=== PATIENT | female | born 1980 | race Caucasian/White ===

== ENCOUNTER 2017-01-17 14:28 | Inpatient (IN) | payer SELFPAY ==
[2017-01-17] MEDS ORDERED: HYDROcodone/Acetaminophen 5/325 mg Tablet ONE ×2 (15:30→16:15)
[2017-01-17] MEDS ORDERED: Clindamycin/D5W 900 mg/50 ml Premix Bag ONE (15:31)
[2017-01-17 15:53] LABS: #Basophils 0.2 thou/uL (0.0-0.2); #Eosinphils 0.3 thou/uL (0.0-0.7); #Lymphocytes 4.6 thou/uL (1.20-3.40); #Monocytes 0.6 thou/uL (0.11-0.59); #Neutrophils 5.8 thou/uL (1.40-6.50); %Basophils 1.3 % (0.0-1.0); %Eosinophils 2.8 % (0.0-10.0); %Lymphocytes 40.1 % (21.0-51.0); %Monocytes 4.9 % (0.0-10.0); Hematocrit 40.5 % (36.0-47.0); Mean Platelet Volume 7.3 fL (7.4-10.4); Red Blood Cell (RBC) Count 4.55 mill/uL (4.20-5.40); White Blood Cell (WBC) Count 11.5 thou/uL (4.8-10.8)
--- NOTE | 2017-01-17 15:54 | RAD ---
THREE VIEWS RIGHT HAND: HISTORY: Right hand bit by dog. FINDINGS: AP, lateral, and oblique views of the right hand are obtained. Three views of the right hand demons trate an area of lucency involving the distal tuft of the distal phalanx, fifth digit, right hand. No other significant abnormality seen. IMPRESSION: Findings concerning for a minimally displaced fracture , distal tuft, distal phalanx, fifth digit, r ight hand. POS: MEÑO
[2017-01-17] MEDS ORDERED: Metoclopramide HCl 10 MG/2 ML VIAL ONE (16:18)
[2017-01-17] MEDS ORDERED: Bisacodyl 10 MG SUPP PR PRN (18:02)
[2017-01-17] MEDS ORDERED: Bisacodyl 5 MG TAB PO PRN (18:02)
[2017-01-17] MEDS ORDERED: HYDROcodone/Acetaminophen 5/325 mg Tablet PO PRN (18:02)
[2017-01-17] MEDS ORDERED: Ondansetron HCl/PF 4 MG/2 ML Vial IVP PRN (18:02)
[2017-01-17] MEDS ORDERED: Calcium Carbonate 500 MG ChewTAB PO PRN (18:02)
[2017-01-17 18:54] LABS: ALT (SGPT) 20 U/L (8-55); AST (SGOT) 21 U/L (5-34); Alkaline Phosphatase 84 U/L (40-150); Anion Gap 15 mmol/L (10-20); BUN (Urea Nitrogen) 12 mg/dL (7.0-18.7); Bilirubin, Total 0.3 mg/dL (0.2-1.2); Calc. Creatinine Clearance 0 mL/min (70-130); Calcium 9.7 mg/dL (7.8-10.44); Carbon Dioxide 22 mmol/L (22-29); Chloride 108 mmol/L (98-107); Estimated GFR-MDRD Greater than 90; Globulin 2.6 g/dL (2.4-3.5); Protein, Total 7.1 g/dL (6.0-8.3)
[2017-01-17] MEDS ORDERED: Sodium Chloride 0.9% 10 ML ONE ×2 (19:33→21:21)
[2017-01-17] MEDS: Ondansetron ODT 4 MG TAB PO PRN (19:37)
[2017-01-17] MEDS: Fentanyl 100 MCG/2 ML VIAL SLOW IVP PRN (19:44)
[2017-01-17] MEDS: Famotidine/PF 20 mg/2ml Vial SLOW IVP SCH (21:00)
[2017-01-17 21:19] VITALS: BMI 39.9
[2017-01-17] MEDS: Famotidine 20 MG TAB PO SCH (21:32)
[2017-01-17] MEDS: HYDROcodone/Acetaminophen 5/325 mg Tablet PO PRN (22:55)
[2017-01-17] MEDS: metroNIDAZOLE 500 MG in Premix Bag 1 BAG IVPB SCH (23:04)
[2017-01-18] MEDS ORDERED: Sodium Chloride 0.9% 10 ML ONE (00:43)
[2017-01-18] MEDS: Fentanyl 100 MCG/2 ML VIAL SLOW IVP PRN ×3 (00:49→12:34)
[2017-01-18] MEDS: HYDROcodone/Acetaminophen 5/325 mg Tablet PO PRN ×2 (04:27→19:16)
[2017-01-18 05:32] LABS: #Basophils 0.1 thou/uL (0.0-0.2); #Eosinphils 0.5 thou/uL (0.0-0.7); #Lymphocytes 5.6 thou/uL (1.20-3.40); #Monocytes 0.7 thou/uL (0.11-0.59); #Neutrophils 4.4 thou/uL (1.40-6.50); %Basophils 1.1 % (0.0-1.0); %Eosinophils 4.6 % (0.0-10.0); %Lymphocytes 49.3 % (21.0-51.0); %Monocytes 6.3 % (0.0-10.0); Hematocrit 40.2 % (36.0-47.0); Mean Platelet Volume 7.3 fL (7.4-10.4); Red Blood Cell (RBC) Count 4.51 mill/uL (4.20-5.40); White Blood Cell (WBC) Count 11.3 thou/uL (4.8-10.8)
[2017-01-18] MEDS ORDERED: Potassium Chloride 20 MEQ TAB PO SCH (06:00)
--- NOTE | 2017-01-18 06:25 | HP-2 ---
DATE OF ADMISSION: 01/17/2017 CODE STATUS: FULL. ATTENDING: Aniyah Chavez M.D. RESIDENT: Carloz Alcazar, PGY-1 CHIEF COMPLAINT: Dog bite. HISTORY OF PRESENT ILLNESS: This is a 36-year-old female, who came in, presenting with ri ght hand swelling due to a dog bite. Dog bite occurred on Saturday after she was playing with her do g, dog kind of a little excited and accidentally bit her. She then went to clean her fish tanks on the same day. Over the next few days, she said she kept washing her hands, kept taking some pain me dicine, yet the pain continued to get worse and swelling got worse. She thought she had a possible break, so she came to us at the ER where she reports throbbing pain, pain at a 7 and 8. She has jorge en Advil and Tylenol and says the swelling gotten worse. She reports some nausea in the ER, but she had recently got some medicine and thinks it is from that. PAST MEDICAL HISTORY: Bipolar, ADHD and anxiety. PAST SURGICAL HISTORY: Hysterectomy, cholecystectomy, right knee scope and x2. ALLERGIES: AMOXICILLIN and SULFA, which cause swelling of the throat. MEDICATIONS: She was on none. FAMILY HISTORY: Mom had breast cancer and high blood pressure. Dad had diabetes. SOCIAL HISTORY: She smokes 1 to 2 cigarettes a day. She also vapes. She quit smoking heavily abou t 4 years ago. Alcohol use is none. Drugs are none. REVIEW OF SYSTEMS: She reported nausea, pain in the hand, tenderness and stiffness in the hand. Al l other review of systems are noted in the HPI and in the review of system section are otherwise neg ative at this time. PHYSICAL EXAMINATION: VITAL SIGNS: Blood pressure 142/98, pulse 67, respirations 18, temperature 97.5, pulse ox 97% on ro om air, current weight is 89 kg. GENERAL: Alert and oriented x3, well-developed, well-nourished, obese, and appropriately interactiv e. EYES: Conjunctivae within normal limits. ENT: Nasal mucosa within normal limits. Oropharynx within normal limits. NECK: Supple, no lymphadenopathy, no thyromegaly. CARDIOVASCULAR: Regular rate and rhythm. No murmur, no gallops. Radial pulses palpated bilaterall y. RESPIRATORY: Normal breathing effort. Lungs are clear to auscultation bilaterally, a little hard t o hear due to body habitus. SKIN: Warm and dry. There is redness and bruising of the right hand. ABDOMEN: Soft, nontender to palpation. Bowel sounds heard in all 4 quadrants. No masses or disten tion noted. EXTREMITIES: She has swelling in her right hand. It is red, bruised and tender up to the wrist are a. The puncture wound is in between the thumb and the right index finger in the padding area of the hand. She also has extreme pain with passive flexion of her right index finger. There is also swe lling in her right middle finger and redness goes up to her fourth and fifth digit as well. Not as much pain with movement on the middle fourth and fifth digits. It was time marked at 1700 and marke d where the redness and swelling went o. MUSCULOSKELETAL: Structure is not within normal limits due to dog bite. She does not have full ran ge of motion in her hand due to the swelling. NEUROLOGIC: No focal deficits and sensation is within normal limits. LABORATORY DATA: White blood cell count is 11.5, hemoglobin 13.7, hematocrit 40.5, platelets 353, a nd neutrophil percent was 50.8. IMAGING: A hand x-ray showed findings concerning of minimally displaced fracture distal tuft, dista l phalanx and fifth digit of the right hand. ASSESSMENT AND PLAN: 1. Cellulitis secondary to dog bite/fish tank clean, was started on Cipro 400 IV q.12 hours and met ronidazole 500 mg IV q.8 hours. We give her a regular diet. We will give her [place] for pain. Give fentanyl for pain as well. We will do famotidine for GERD prophylaxis. Check an ESR and CRP if el evated. We will get an MRI concerning for tenosynovitis. Her tetanus is up to date and her dog has rabies vaccines up to date as well at this time. We will consider hand consult depending on what t he MRI shows. 2. Bipolar, attention deficit hyperactivity disorder, anxiety, psychological disorder. She is not taking treatment at this time. We will not treat at this time. 3. Suspected hypertension. Blood pressure is a little elevated may be due to pain. We will contin ue to monitor and recommend treatment outpatient.
[2017-01-18] MEDS: metroNIDAZOLE 500 MG in Premix Bag 1 BAG IVPB SCH ×3 (06:28→22:23)
[2017-01-18] MEDS: NS 0.9% w/ 20 MEQ KCL 1,000 ML/1,000 ML BAG IV SCH ×3 (06:37→19:17)
--- NOTE | 2017-01-18 08:12 | PDOC.FM ---
- Subjective Subjective: pt reports doing much better today. Swelling and redness in hand improved. Still has lots of pain in R. index finger. Finger still in flexed position. Reports having lots of pain to light touch. Denies any fever chills. Denies any n/v/d/c. No other concerns or problems at this time - Objective Vital Signs & Weight: Vital Signs (12 hours) Temp Pulse Resp BP BP Pulse Ox 01/18/17 08:06 97.9 F 61 20 113/74 01/18/17 04:20 97.7 F 66 16 123/78 98 01/18/17 00:45 97.8 F 68 16 163/87 H 98 Weight Weight 89.811 kg I&O: 01/17/17 01/18/17 01/19/17 06:59 06:59 06:59 Intake Total 1602 Balance 1602 Result Diagrams: 01/18/17 05:07 01/17/17 15:47 Radiology Reviewed by me: Yes Radiology: 01/17 Hand xray: findings concerning for a minimally displace fx, distal tuft, distal phalanx, fifth digit, right hand. <Carloz Alcazar - Last Filed: 01/18/17 08:10> - Objective Vital Signs & Weight: Vital Signs (12 hours) Temp Pulse Resp BP BP Pulse Ox 01/18/17 08:06 97.9 F 61 20 113/74 01/18/17 08:02 97.9 F 61 20 01/18/17 04:20 97.7 F 66 16 123/78 98 01/18/17 00:45 97.8 F 68 16 163/87 H 98 Weight Weight 89.811 kg I&O: 01/17/17 01/18/17 01/19/17 06:59 06:59 06:59 Intake Total 1602 Balance 1602 Result Diagrams: 01/18/17 05:07 01/17/17 15:47 <Jin Westfall - Last Filed: 01/18/17 11:16> Phys Exam - Physical Examination HEENT: moist MMs, oral pharynx no lesions Neck: no nodes, supple, full ROM Respiratory: no wheezing, no rales, no rhonchi, clear to auscultation bilateral Cardiovascular: RRR, no significant murmur, no rub Gastrointestinal: soft, non-tender, no distention, positive bowel sounds Musculoskeletal: pulses present R. hand still swollen. Redness decreased from marking point. less bruising r. index Finger still flexed. Lots of pain on attempt of passive flexion Neurological: non-focal, normal sensation Lymphatic: no nodes Psychiatric: normal affect, A&O x 3 Deviation from normal: No oozing or drainage from puncture wound. Redness, Swelling decreased <Carloz Alcazar - Last Filed: 01/18/17 08:10> Dx/Plan (1) Dog bite Code(s): W54.0XXA - BITTEN BY DOG, INITIAL ENCOUNTER Status: Acute (2) Cellulitis of right hand Code(s): L03.113 - CELLULITIS OF RIGHT UPPER LIMB Status: Acute (3) Tenosynovitis of finger Status: Suspected (4) Tobacco abuse Code(s): Z72.0 - TOBACCO USE Status: Acute (5) Bipolar 1 disorder Code(s): F31.9 - BIPOLAR DISORDER, UNSPECIFIED Status: Chronic (6) ADHD Status: Chronic (7) Anxiety Code(s): F41.9 - ANXIETY DISORDER, UNSPECIFIED Status: Chronic - Plan Plan: Cellulitis 2/2 Dog bite and cleaning out fish tank -On cipro and Flagyl due to allergies to amoxicillin/sulfa abx -ESR normal. CRP elevated to 3.07. -WBC down at 11.3 -Will continue to monitor Suspected Tenosynovitis -MRI pending this morning. -Pain on passive extesion of R. index finger. Held in flexed position -Likely consult Hand surgery today Bipolar, ADHD, Anxiety -currently not on any meds. -Continue to monitor Suspected HTN -Not on any meds -Continue to monitor and recommend f/u outpatient Tobacco Abuse -counselled on quitting <Carloz Alcazar - Last Filed: 01/18/17 08:10> Attending Addendum - Attending Addendum I personally evaluated the patient and discussed the management with Dr. Alcazar. I agree with the History, Examination, Assessment and Plan documented above with any addition or exceptions noted below. R hand improving with IV antibiotics. Will continue. MRI showed tenosynovitis , so we will consult hand surgeon for evaluation. Patient complaining of itching with IV cipro, will pre-medicate with Benadryl, as no other reactions. <Jin Westfall - Last Filed: 01/18/17 11:16>
[2017-01-18] MEDS: Famotidine 20 MG TAB PO SCH ×2 (09:03→21:05)
[2017-01-18] MEDS: Famotidine/PF 20 mg/2ml Vial SLOW IVP SCH ×2 (09:03→21:12)
[2017-01-18] MEDS ORDERED: diphenhydrAMINE HCl 50 MG/ML 1 ML VIAL IVP SCH ×3 (09:45→22:15)
--- NOTE | 2017-01-18 10:48 | MRI ---
MRI RIGHT WRIST WITHOUT CONTRAST: Date: 01/18/17 HISTORY: Evaluate for tenosynovitis of the right second digit. COMPARISON: Hand radiograph from prior day. FINDINGS: Bones: Field of view is much too large to evaluate for small fractures of the distal phalanges, although th ere is now abnormal edema of the tuft of the distal phalanx fifth digit. The radiographic finding ma y be an old injury. Tendons: There is low grade edema surrounding the extensor indices and digitorum at the metacarpophalangeal j oint. Remainder of the tendon sheaths are normal. Muscles: There appears to be a laceration with small focus of hemorrhage along the dorsal aspect of the first dorsal interosseous muscle. There is extensive surrounding edema. There is overlying skin thickenin g. Edema tracks from the thenar eminence into the palmar soft tissues deep to the first lumbrical an d adductor pollicis. Soft Tissues: No evidence of a alfie injury. There is a large effusion of the second digit metatarsophalangeal marty int with an area of subcortical edema of the lateral aspect of the second metatarsal head. No other metacarpal head has an erosion like this. IMPRESSION: 1. Given the history, findings are concerning for a laceration and partial tear of the dorsal aspec t of the first dorsal interosseous muscle with edema, which may be infected, of the metacarpophalang eal joint. There is also an intramedullary fluid collection of the second metacarpal head adjacent t o this injury and an impacted traumatic bone laceration is within the differential given that the hi story is patient was bitten by a dog. 2. Low grade tenosynovitis of the second digit extensor indices and extensor digitorum centered pre dominantly at the metacarpophalangeal joint. CODE T. POS: [facility]
[2017-01-19] MEDS: Fentanyl 100 MCG/2 ML VIAL SLOW IVP PRN ×3 (04:48→19:23)
[2017-01-19] MEDS ORDERED: Sodium Chloride 0.9% 10 ML ONE (06:01)
[2017-01-19 06:20] LABS: Anion Gap 11 mmol/L (10-20); BUN (Urea Nitrogen) 12 mg/dL (7.0-18.7); Calc. Creatinine Clearance 150 mL/min (70-130); Calcium 9.3 mg/dL (7.8-10.44); Carbon Dioxide 24 mmol/L (22-29); Chloride 111 mmol/L (98-107); Estimated GFR-MDRD Greater than 90
[2017-01-19 06:34] LABS: Hematocrit 38.3 % (36.0-47.0); Mean Platelet Volume 7.7 fL (7.4-10.4); Neutrophil 37 % (42-75); Red Blood Cell (RBC) Count 4.25 mill/uL (4.20-5.40); White Blood Cell (WBC) Count 10.3 thou/uL (4.8-10.8)
--- NOTE | 2017-01-19 06:58 | PDOC.FM ---
- Subjective Subjective: Pt still reports having bad pain in puncture bite kathy. Still has finger in flexed position. Denies any fever, chills. denies any SOB or chest pain. Denies any n/v/d. Denies any other problems at this time. - Objective MAR Reviewed: Yes Vital Signs & Weight: Vital Signs (12 hours) Temp Pulse Resp BP Pulse Ox 01/19/17 00:00 98.3 F 87 18 102/78 01/18/17 19:20 98.3 F 73 20 156/74 H 97 Weight Admit Weight 89.811 kg Weight 89.811 kg I&O: 01/17/17 01/18/17 01/19/17 06:59 06:59 06:59 Intake Total 1602 1382 Balance 1602 1382 Result Diagrams: 01/19/17 05:34 01/19/17 05:34 Radiology Reviewed by me: Yes Radiology: MRI Hand 01/18: Low grade tenosynovitis of second digit, Intramedullary fluid collection of second metacarpal head, and impacted traumatic bone laceration in differential. Xray Rt hand 01/17: minimally displaced fx, distal tuft, distal phalanyx, rt 5th digit Phys Exam - Physical Examination HEENT: PERRLA, moist MMs, oral pharynx no lesions Neck: no nodes, no JVD, supple, full ROM Respiratory: no wheezing, no rales, no rhonchi, clear to auscultation bilateral Cardiovascular: RRR, no significant murmur, no rub Gastrointestinal: soft, non-tender, no distention, positive bowel sounds Musculoskeletal: pulses present Swelling has reduced, Redness minimal Finger still in flexed position, Painful to move. Neurological: non-focal, normal sensation, moves all 4 limbs Lymphatic: no nodes Psychiatric: normal affect, A&O x 3 Skin: no rash Dx/Plan (1) Dog bite Code(s): W54.0XXA - BITTEN BY DOG, INITIAL ENCOUNTER Status: Acute (2) Cellulitis of right hand Code(s): L03.113 - CELLULITIS OF RIGHT UPPER LIMB Status: Acute (3) Tenosynovitis of finger Status: Acute (4) Tobacco abuse Code(s): Z72.0 - TOBACCO USE Status: Acute (5) Bipolar 1 disorder Code(s): F31.9 - BIPOLAR DISORDER, UNSPECIFIED Status: Chronic (6) ADHD Status: Chronic (7) Anxiety Code(s): F41.9 - ANXIETY DISORDER, UNSPECIFIED Status: Chronic - Plan Plan: Cellulitis 2/2 Dog bite and cleaning out fish tank -On cipro and Flagyl due to allergies to amoxicillin/sulfa abx -ESR normal. CRP 3.07 yesterday. -WBC trended down -Will continue to monitor Tenosynovitis -MRI: Low grade tenosynovitis of second digit, possible trauma to the bone. Possible abscess -Pain on passive extesion of R. index finger. Held in flexed position -Hand Surgery consulted- Dr. Fernandez, will follow recommendations -Surgery to be done today. Bipolar, ADHD, Anxiety -currently not on any meds. -Continue to monitor Suspected HTN -Not on any meds -Continue to monitor and recommend f/u outpatient Tobacco Abuse -counselled on quitting
--- NOTE | 2017-01-19 07:09 | CON ---
DATE OF CONSULTATION: 01/19/2017 CHIEF COMPLAINT: Ms. Negrete complains of right dorsal hand wound. HISTORY OF PRESENT ILLNESS: Ms. Negrete reports she was involved bite by her own dog 4 days prior to a dmission, has been in the hospital for over 24 hours on IV antibiotics. No response to this. [facility] doctor ordered an MRI of her hand, which showed an abscess around her tendon, tendon sheath extensor near the joint capsule and may be the bite more penetrating the bone. PAST MEDICAL HISTORY: The patient has no previous dog bites, especially by this dog. PHYSICAL EXAMINATION: She has vital signs shows no fever. No tachycardia. She has soft tissue swe lling with erythema beginning at a puncture wound, which she says secondary to dog bite over the mid metacarpal all the way to the metacarpophalangeal joint, where she has pain with flexion of the isabel nt, but no pain with resisted extension or flexion of the metacarpophalangeal joint or the interphal angeal joints. There is minimal lymphangitic streaking to the level of the distal radius. No thumb abnormality and no flexor tendon sheath such as fusiform swelling or pain with passive stretch and limited or extension of flexion. MRI findings listed above. ASSESSMENT/RECOMMENDATIONS: Abscess, subcutaneous wraps around the tendon sheath from the bit e wound towards the joint may be involved in the capsule, bout doubt abscess within the joint. Ther efore, we recommended a semi-elective but not emergent drainage of this hand, which will be done the next day. The patient counseled all risks to include the fact that there is gross purulence. We w ill need to have possible IV antibiotics, evaluation by Infectious Disease specialist and then a sec ond procedure for closure.
[2017-01-19] MEDS ORDERED: Fentanyl 100 MCG/2 ML VIAL ONE ×3 (07:20→09:24)
[2017-01-19] MEDS ORDERED: Lidocaine 1% (PF) 30 ML VIAL ONE (07:50)
[2017-01-19] MEDS ORDERED: Sodium Chloride 0.9% 30 ML ONE (07:50)
[2017-01-19] MEDS ORDERED: Bupivacaine PF 0.5% 30 ML VIAL ONE (07:50)
[2017-01-19] MEDS ORDERED: Bacitracin Zinc Ointment 30 gm TUBE ONE (07:50)
[2017-01-19] MEDS ORDERED: Thrombin 5000 UNITS/5 ML VIAL ONE (07:50)
[2017-01-19] MEDS ORDERED: Ondansetron HCl/PF 4 MG/2 ML Vial ONE (08:17)
[2017-01-19] MEDS ORDERED: Propofol 200 MG/20 ML VIAL ONE (08:17)
[2017-01-19] MEDS ORDERED: Lidocaine 1% PF 5 ML VIAL ONE (08:17)
[2017-01-19] MEDS ORDERED: Dexamethasone 20 MG/5 ML VIAL ONE (08:17)
[2017-01-19] MEDS ORDERED: diphenhydrAMINE HCl 50 MG/ML 1 ML VIAL ONE (08:17)
[2017-01-19] MEDS ORDERED: HYDROmorphone 2 MG/ML VIAL SLOW IVP PRN (09:30)
[2017-01-19] MEDS ORDERED: Promethazine HCl 25 MG/ML VIAL IM PRN (09:30)
[2017-01-19] MEDS ORDERED: Ondansetron HCl/PF 4 MG/2 ML Vial IVP PRN (09:30)
[2017-01-19] MEDS ORDERED: Promethazine HCl 25 MG/ML VIAL SLOW IVP PRN (09:30)
[2017-01-19] MEDS: Famotidine/PF 20 mg/2ml Vial SLOW IVP SCH ×2 (10:28→19:06)
[2017-01-19] MEDS: metroNIDAZOLE 500 MG in Premix Bag 1 BAG IVPB SCH ×3 (11:27→21:26)
[2017-01-19] MEDS ORDERED: Ketorolac Tromethamine 30 MG/ML VIAL IVP SCH (11:30)
[2017-01-19] MEDS ORDERED: Ketorolac Tromethamine 30 MG/ML VIAL IM SCH (11:30)
[2017-01-19] MEDS ORDERED: Vancomycin HCl 1 GM in Premix Bag 1 BAG IVPB SCH (11:30)
[2017-01-19] MEDS: Famotidine 20 MG TAB PO SCH ×2 (11:36→19:23)
[2017-01-19] MEDS: Morphine Sulfate 2 MG/ML SYRINGE SLOW IVP PRN ×2 (11:43→21:25)
[2017-01-19] MEDS: Promethazine HCl 25 MG/ML VIAL IM PRN (13:11)
[2017-01-19] MEDS: HYDROcodone/Acetaminophen 7.5/325 mg Tablet PO PRN ×2 (16:21→21:25)
[2017-01-19] MEDS: NS 0.9% w/ 20 MEQ KCL 1,000 ML/1,000 ML BAG IV SCH ×2 (16:44→17:53)
[2017-01-19] MEDS: Ketorolac Tromethamine 30 MG/ML VIAL IVP SCH ×2 (17:52→23:37)
--- NOTE | 2017-01-19 20:47 | CON ---
DATE OF CONSULTATION: 01/19/2017 REASON FOR CONSULTATION: Dog bite. HISTORY OF PRESENT ILLNESS: A 36-year-old who has a history of bipolar disorder and was playing wit h her dog and then accidentally it bit her. Initially the area of interest was the dorsal aspect of the right hand, the patient herself did not realize that it had broken the skin. She apparently we nt to clean her fish tank that she owns and subsequently developed progressively worsening inflammat ory changes and was admitted and underwent an MRI which showed a concern for laceration of the bone, laceration of muscle with extensive surrounding edema and overlying skin thickening. There was inf ection of the second digit metatarsophalangeal joint as well. Patient underwent surgical debridemen t by Dr. Fernandez this morning. The operative report is not yet available for review. The patient is feeling well. No headaches, visual symptoms, sore throat, odynophagia, dysphagia. No cough or s putum production or chest pain. No abdominal pain or diarrhea. No genitourinary symptoms. No othe r joint symptoms. No neurological disorder. PAST MEDICAL HISTORY: Bipolar disorder, ADHD. PAST SURGICAL HISTORY: Hysterectomy, cholecystectomy, right knee arthroscopy, . ALLERGIES: AMOXICILLIN and SULFA DRUGS with ANGIOEDEMA and also itching from QUINOLONES. FAMILY HISTORY: Breast cancer in mother. SOCIAL HISTORY: Current smoker. No drug use otherwise. PHYSICAL EXAMINATION: SKIN: The right hand is dressed at this time. Peripheral IV access. No Huerta catheter. No lympha denopathy. HEENT: Not remarkable. LUNGS: Clear to auscultation and percussion. HEART: S1, S2, regular rate. No murmurs. ABDOMEN: Soft. Not distended or tender. No ascites. No bladder distention noted. EXTREMITIES: No other joint inflammatory process. NEUROLOGIC: Nonfocal. LABORATORY DATA: White cell count is down to 10.3, hemoglobin 12, and platelets 340. Differential was not remarkable and sodium 142, creatinine 0.72. Liver profile normal. CK 120. Microbiology 2 sets of blood cultures submitted and we have cultures submitted from the specimen obtained duri surgery this morning still pending interpretation. ASSESSMENT: Bipolar disorder with now accidental dog bite. The dog was vaccinated and was just an inadvertent event. DISCUSSION: Patient has evidence of osteomyelitis, septic arthritis. We will need to continue anti microbial therapy intravenously guided by culture results. Pasteurella Staphylococcus aureus and ot her gram-negative streptococci are the main possibilities; fungal and mycobacterial pathogens less l ikely. Currently, patient is on ciprofloxacin, metronidazole and vancomycin and will continue curre nt regimen until we have results of cultures and then adjust accordingly. Probably will need a PICC line placement.
[2017-01-19] MEDS: Vancomycin HCl 750 MG in Sodium Chloride 0.9% 250 ML 250 ML IVPB SCH (23:36)
--- NOTE | 2017-01-19 23:47 | ADD-PRG ---
ADDENDUM: DATE OF SERVICE: 01/19/2017 The patient was seen with the residents at the bedside. Patient is now postoperative for debridemen t for her right finger abscess from the dog bite and fish aquarium water exposure. Waiting on the c anthonyture results. We got her on Levaquin, eventually was switched to Cipro and Keflex, and GI is bein g consulted, and the hand surgeon is taking care of the postoperative care and orders. Dr. Reyes is taking care of the Infectious Disease side of this and the antibiotics, and we are getting stool st udies to make sure she is not Clostridium difficile positive because she has gotten diarrhea.
--- NOTE | 2017-01-20 00:26 | OP ---
DATE OF PROCEDURE: 01/19/2017 PREOPERATIVE DIAGNOSIS: Abscess from dog bite, right hand. POSTOPERATIVE DIAGNOSES AND FINDINGS: 1. Abscess dog bite with one bite kathy over the mid index finger metacarpal. 2. Dog bite over the metacarpophalangeal joint associated with tenosynovitis of extensor tendons x2 and joint abscess intra-articular with almost 2 to 3 mL of gross purulence within the joint of the index finger metacarpophalangeal joint. PROCEDURES PERFORMED: 1. Incision and drainage abscess hand. 2. At separate site with separate incision from a second separate bite. A. Arthrotomy index finger metacarpophalangeal joint with drainage of abscess. B. Extensor tenosynovectomy extensor digitorum communis to the index finger. C. Extensor tenosynovectomy, extensor indicis proprius tendon to the index finger. Both wounds wer e irrigated with Pulsavac irrigation total of 3 liters of normal saline with antibiotics inside. Mendel th wounds dressed open. CULTURES: A. Culture of a separate wound at the mid metacarpal level. B. The joint cavity abscess. INDICATIONS: Dog bite almost 6 days prior to the surgery. When she did not respond to IV antibioti cs and had a positive MRI for the findings for this as above, Jim for hand service was consulte d. Within 8 hours of evaluation, she was brought to the operating room. DESCRIPTION OF PROCEDURE: After successful general endotracheal anesthesia, limb was prepped and dr martins. Anesthesia done by [facility] with excellent effect. It was augmented by, after soy eout was done appropriately, 12 mL of 0.5% Marcaine block along the two incision sites. The limb wa s exsanguinated, tourniquet inflated to 250 mmHg pressure, then we made a zigzag incision, first daija tered over the MP joint without going over the dorsum and then one centered approximately 3 cm proxi mal to the second dog bite. The second dog bite wound was opened first deep found to have an absces s subcutaneous with small amount of hematoma, all of which were debrided and passed on the specimen. Then, we extended incision to connect to the second incision site over the MP joint here; as soon as we entered the subcutaneous area, we could see marked tenosynovitis with purulence deep to the ex tensor tendon. We did tenosynovectomy of the extensor tendon until we got to the retinaculum on the radial side to expose the joint capsule and the joint had gross purulence as soon as we opened it. Cultures were made of both sites separately. We debrided all the arthrotomy visualized synovitis, d id extensive synovectomy over a 3 cm length for the extensor digitorum communis to the index finger and the extensor indicis proprius to index finger. Then, we irrigated the joint first with 2 liters of normal saline and Pulsavac pressure, 500 mL normal saline bulb syringe pressure, and then the sa me irrigation included the proximal portion of the wound. Then, we attained hemostasis, closed the wound with packing of the joint and the wound with normal saline soaked 4 x 4 sterile bulky dressing and the patient left the operating room without complication.
[2017-01-20] MEDS: metroNIDAZOLE 500 MG in Premix Bag 1 BAG IVPB SCH ×3 (04:23→21:05)
[2017-01-20] MEDS: Ketorolac Tromethamine 30 MG/ML VIAL IVP SCH ×4 (04:25→23:41)
[2017-01-20] MEDS: NS 0.9% w/ 20 MEQ KCL 1,000 ML/1,000 ML BAG IV SCH (04:27)
[2017-01-20] MEDS: Ondansetron ODT 4 MG TAB PO PRN (04:30)
[2017-01-20 05:18] LABS: #Eosinphils 0.1 thou/uL (0.0-0.7); #Lymphocytes 2.5 thou/uL (1.20-3.40); #Monocytes 1.1 thou/uL (0.11-0.59); %Basophils 0.2 % (0.0-1.0); %Eosinophils 0.3 % (0.0-10.0); %Lymphocytes 15.2 % (21.0-51.0); %Monocytes 6.3 % (0.0-10.0); Hematocrit 38.1 % (36.0-47.0); Mean Platelet Volume 7.8 fL (7.4-10.4); Red Blood Cell (RBC) Count 4.29 mill/uL (4.20-5.40); White Blood Cell (WBC) Count 16.7 thou/uL (4.8-10.8)
--- NOTE | 2017-01-20 07:20 | PDOC.FM ---
- Subjective Subjective: Pt post-op day 1. Had surgery on hand yesterday. Hand wrapped at this time. Pt was sleeping when in the room. Pt reports having chills overnight. Pt denies any n/v/d/c. Denies any chest pain or SOB. Pt does report having pain sometimes. Says pain is being treated okay. Says the norco just takes awhile to kick in. Says the fentanyl helped but for some reason the morphine hasn't worked. Able to tolerate pain. Denied any other problems or concerns at this time. - Objective MAR Reviewed: Yes Vital Signs & Weight: Vital Signs (12 hours) Temp Pulse Resp BP Pulse Ox 01/20/17 04:00 98.0 F 73 16 132/81 97 01/20/17 00:00 99.3 F 81 16 135/79 97 01/19/17 20:00 99.3 F 95 18 119/72 95 01/19/17 19:56 98.3 F 70 16 Weight Admit Weight 89.811 kg Weight 89.811 kg I&O: 01/19/17 01/20/17 01/21/17 06:59 06:59 06:59 Intake Total 3857 Balance 3857 Result Diagrams: 01/20/17 04:34 01/19/17 05:34 Dx/Plan (1) Dog bite Code(s): W54.0XXA - BITTEN BY DOG, INITIAL ENCOUNTER Status: Acute (2) Cellulitis of right hand Code(s): L03.113 - CELLULITIS OF RIGHT UPPER LIMB Status: Acute (3) Tenosynovitis of finger Status: Acute (4) Tobacco abuse Code(s): Z72.0 - TOBACCO USE Status: Acute (5) Abscess Code(s): L02.91 - CUTANEOUS ABSCESS, UNSPECIFIED Status: Acute (6) Bipolar 1 disorder Code(s): F31.9 - BIPOLAR DISORDER, UNSPECIFIED Status: Chronic (7) ADHD Status: Chronic (8) Anxiety Code(s): F41.9 - ANXIETY DISORDER, UNSPECIFIED Status: Chronic - Plan Plan: Cellulitis w/ abscess 2/2 Dog bite and cleaning out fish tank -On cipro (01/17) and Flagyl (01/17).due to allergies to amoxicillin/sulfa abx. Vancomycin (01/19) started yesterday. First vac trough will be due tmrw at noon -ESR normal. CRP 3.07 upon admission -WBC trended up. No fevers noted at this time. Pt is post op -Post Op Day 1- abscess noted around puncture site on op report. -Will continue to monitor Tenosynovitis -MRI: Low grade tenosynovitis of second digit, possible trauma to the bone. Possible abscess -Pain on passive extesion of R. index finger. Held in flexed position -Hand Surgery consulted- Dr. Fernandez, will follow recommendation -Post Op Day 1. Abscess was noted around puncture wound per op report. Purulent drainage and swelling noted in joint capsule and around Tendon. -ID- Dr. Reyes consulted appreciate recs. -Hand Surgery- Dr. Fernandez conulted- appreciate recs -Wound care consulted -Wound Anaerobic cx pending. -01/17 Blood Cx- NGTD after 48 hours. Bipolar, ADHD, Anxiety -currently not on any meds. -Continue to monitor Suspected HTN -Not on any meds -Continue to monitor and recommend f/u outpatient Tobacco Abuse -counselled on quitting
[2017-01-20] MEDS: Famotidine 20 MG TAB PO SCH ×2 (08:33→20:20)
[2017-01-20] MEDS: Famotidine/PF 20 mg/2ml Vial SLOW IVP SCH ×2 (08:37→20:19)
[2017-01-20] MEDS: HYDROcodone/Acetaminophen 7.5/325 mg Tablet PO PRN ×2 (08:43→20:22)
[2017-01-20] MEDS: Gabapentin 300 MG CAP PO SCH ×2 (11:37→20:20)
[2017-01-20] MEDS: Vancomycin HCl 750 MG in Sodium Chloride 0.9% 250 ML 250 ML IVPB SCH ×2 (11:39→23:41)
--- NOTE | 2017-01-20 17:03 | ADD-PRG ---
ADDENDUM DATE OF SERVICE: 01/20/2017 Please see the note from Dr. Alcazar for which I concur. The patient was evaluated, examined, and di scussed with the residents by the bedside. The patient is postop day #1, was still on Cipro, Flagyl , vancomycin was added. Awaiting on a culture result for her finger abscess. Synovitis was incised and drained and cultured yesterday, basically the plan is to continue postop management, IV therapy of antibiotics, and awaiting on the culture results, Amy is involved. Neurovascularly, the hand is intact this morning.
[2017-01-20] MEDS ORDERED: diphenhydrAMINE HCl 25 MG CAP PO PRN (21:01)
[2017-01-21] MEDS: metroNIDAZOLE 500 MG in Premix Bag 1 BAG IVPB SCH ×2 (05:22→14:15)
[2017-01-21] MEDS: Ketorolac Tromethamine 30 MG/ML VIAL IVP SCH ×2 (05:22→11:56)
[2017-01-21 06:00] LABS: Anion Gap 12 mmol/L (10-20); BUN (Urea Nitrogen) 13 mg/dL (7.0-18.7); Calc. Creatinine Clearance 169 mL/min (70-130); Calcium 8.5 mg/dL (7.8-10.44); Carbon Dioxide 20 mmol/L (22-29); Chloride 114 mmol/L (98-107); Estimated GFR-MDRD Greater than 90
[2017-01-21 06:07] LABS: Hematocrit 37.1 % (36.0-47.0); Mean Platelet Volume 7.5 fL (7.4-10.4); Neutrophil 38 % (42-75); Red Blood Cell (RBC) Count 4.09 mill/uL (4.20-5.40); White Blood Cell (WBC) Count 13.1 thou/uL (4.8-10.8)
--- NOTE | 2017-01-21 06:56 | PDOC.FM ---
- Subjective Subjective: Patient states she had a good night. She is wondering what the plan is this morning. She denies chest pain, sob, n/v/d, fevers, chills, or cough. She states that she has had good BMs and good urination. She denies any other problems. She does state that she has a burning sensation in her hand and that she has decreased movement of her 2nd digit. - Objective Vital Signs & Weight: Vital Signs (12 hours) Temp Pulse Resp BP Pulse Ox 01/20/17 21:51 98.3 F 61 16 144/88 H 98 01/20/17 20:00 98.4 F 78 20 Weight Admit Weight 89.811 kg Weight 89.811 kg I&O: 01/19/17 01/20/17 01/21/17 06:59 06:59 06:59 Intake Total 3857 Balance 3857 Result Diagrams: 01/21/17 04:51 01/21/17 04:51 <Jarett Burton - Last Filed: 01/21/17 11:15> - Objective Vital Signs & Weight: Vital Signs (12 hours) Temp Pulse Resp BP Pulse Ox 01/21/17 11:35 98.6 F 66 18 146/82 H 96 01/21/17 08:00 98.8 F 60 16 98 01/21/17 07:52 98.8 F 60 16 144/96 H 98 Weight Admit Weight 89.811 kg Weight 89.811 kg I&O: 01/20/17 01/21/17 01/22/17 06:59 06:59 06:59 Intake Total 200 Balance 200 Result Diagrams: 01/21/17 04:51 01/21/17 04:51 <Ravin Velazquez - Last Filed: 01/21/17 12:16> Phys Exam - Physical Examination HEENT: moist MMs Neck: no nodes, no JVD Respiratory: no wheezing, clear to auscultation bilateral Cardiovascular: RRR, no significant murmur Gastrointestinal: soft, non-tender Musculoskeletal: no edema, pulses present Neurological: non-focal, normal sensation, moves all 4 limbs Normal sensation to all digits. Psychiatric: normal affect, A&O x 3 Skin: no rash, cap refill <2 seconds Deviation from normal: Normal cap refill to all digits. <Jarett Burton - Last Filed: 01/21/17 11:15> Dx/Plan (1) Abscess Code(s): L02.91 - CUTANEOUS ABSCESS, UNSPECIFIED Status: Acute Plan: -On cipro (01/17) and Flagyl (01/17).due to allergies to amoxicillin/sulfa abx. Vancomycin (01/19). First vac trough at 1100 01/21 -ESR normal. CRP 3.07 upon admission -No fevers noted at this time. Pt is post op -Post Op Day 2- abscess noted around puncture site on op report. -Will continue to monitor -WBC today 13.1 down from 16.1 -Ordered PICC line -Awaiting culture results (2) Cellulitis of right hand Code(s): L03.113 - CELLULITIS OF RIGHT UPPER LIMB Status: Acute Plan: -Secondary to Dog bite and cleaning out fish tank. -On Cipro 01/17, Flagyl 01/17, Vancomycin 01/19 -Awaiting final culture results -PICC line ordered (3) Dog bite Code(s): W54.0XXA - BITTEN BY DOG, INITIAL ENCOUNTER Status: Acute Plan: Cellulitis w/ abscess 2/2 Dog bite and cleaning out fish tank -On cipro (01/17), Flagyl (01/17), and Vancomycin (01/19) -No fevers noted at this time. Pt is post op -Post Op Day 2- abscess noted around puncture site on op report. -Will continue to monitor (4) Tenosynovitis of finger Status: Acute Plan: -MRI: Low grade tenosynovitis of second digit, possible trauma to the bone. Possible abscess -Pain on passive extesion of R. index finger. Held in flexed position -Hand Surgery consulted- Dr. Fernandez, will follow recommendation -Post Op Day 2. Abscess was noted around puncture wound per op report. Purulent drainage and swelling noted in joint capsule and around Tendon. -ID- Dr. Reyes consulted appreciate recs. -Hand Surgery- Dr. Fernandez conulted- appreciate recs -Wound care consulted -Wound Anaerobic culture pending. -Abscess culture pending (5) Tobacco abuse Code(s): Z72.0 - TOBACCO USE Status: Acute Plan: Counseled on quitting. (6) ADHD Status: Chronic Plan: -currently not on any meds. -Continue to monitor (7) Anxiety Code(s): F41.9 - ANXIETY DISORDER, UNSPECIFIED Status: Chronic Plan: -currently not on any meds. -Continue to monitor (8) Bipolar 1 disorder Code(s): F31.9 - BIPOLAR DISORDER, UNSPECIFIED Status: Chronic Plan: -currently not on any meds. -Continue to monitor - Plan Plan: Will await culture results and PICC line placement and discharge planning will be made from there. <Jarett Burton - Last Filed: 01/21/17 11:15> Attending Addendum - Attending Addendum I personally evaluated the patient and discussed the management with Dr. Burton. I agree with the History, Examination, Assessment and Plan documented above with any addition or exceptions noted below. Patient feels well this morning. She continues on IV abx therapy and there is discussion about PICC line placement and prison outpatient abx. We will discuss with ID and Dr. Fernandez this morning about those plans. Pain is well controlled. Her WBC is still somewhat elevated, though down from yesterday, and patient is afebrile. Continue wound care. Possible discharge once plan for prison abx and wound care is completed. <Ravin Velazquez - Last Filed: 01/21/17 12:16>
[2017-01-21] MEDS: HYDROcodone/Acetaminophen 7.5/325 mg Tablet PO PRN ×3 (07:33→16:44)
[2017-01-21] MEDS: Famotidine 20 MG TAB PO SCH (08:27)
[2017-01-21] MEDS: Gabapentin 300 MG CAP PO SCH (08:27)
[2017-01-21] MEDS: Famotidine/PF 20 mg/2ml Vial SLOW IVP SCH (08:29)
[2017-01-21] MEDS: Vancomycin HCl 750 MG in Sodium Chloride 0.9% 250 ML 250 ML IVPB SCH (11:57)
[2017-01-21 16:08] VITALS: TEMP 98.8
[2017-01-21] MEDS: Promethazine HCl 25 MG/ML VIAL IM PRN (16:13)
[2017-01-21 16:55] VITALS: BP 136/89
--- NOTE | 2017-01-21 20:41 | DIS-2 ---
DATE OF ADMISSION: 01/17/2017 DATE OF DISCHARGE: 01/21/2017 RESIDENT: Jarett Burton MD ADMITTING ATTENDING: Jin Westfall M.D. DISCHARGE ATTENDING: Ravin Velazquez MD CONSULTATIONS: 1. We had case management consult for wound care. 2. Case management for Orthopedics hand trauma. 3. Infectious Disease with Dr. Reyes. 4. The hand trauma orthopedic is Dr. Fernandez PROCEDURES: Incision and drainage of the abscess of the hand with arthrotomy of the index finger of the metacarpophalangeal joint with drainage of abscess with an extensor tenosynovectomy extensor digitorum communis to the index finger with an extensor tenosynovectomy, extensor indicis proprius tendon to the index finger. Both wounds were irrigated with Pulsavac irrigation total of 3 liters of normal saline with antibiotics inside. Both wounds were dressed open. Cultures were taken at that time. PRIMARY DIAGNOSES: 1. Abscess of the right hand. 2. Cellulitis of the right hand secondary to a dog bite. 3. Tenosynovitis of the right second digit. 4. Tobacco abuse. 5. ADHD. 6. Anxiety. 7. Bipolar 1 disorder. DISCHARGE MEDICATIONS: 1. Zyvox 600 mg b.i.d. for 28 days. 2. Ciprofloxacin 500 mg b.i.d. for 30 days. 3. [place] 7.5/325mg Q4h 7 days DISCONTINUED MEDICATIONS: None. HOSPITAL COURSE: This is a 36-year-old female who came in presenting with right hand swelling due to a dog bite. The dog bite occurred on Saturday after she was playing with her dog, the dog was kind of a little excited and accidentally bit her. She then went to clean her fish tanks on the same day. Over the next few days, she said she kept washing her hands, kept taking some pain medicine yet the pain continued to get worse and swelling got worse. She thought she had a possible break so she came to us at the ER where she reports throbbing pain, pain at 7 and 8/10. She has taken Advil and Tylenol and says the swelling has gotten worse. She states some nausea in the ER, but she recently got some medicine and thinks it is from that. During her hospital stay , she then went on to have an upper extremity MRI that showed a laceration and partial tear of the dorsal aspect of the first dorsal interosseous muscle with edema which may be infected of the metacarpophalangeal joint. There is also intramedullary fluid collection of the second metacarpal head adjacent to this injury and an impacted traumatic bone laceration, also low-grade tenosynovitis of the second digit extensor indices and extensor digitorum centered predominantly at the metacarpophalangeal joint. She had some notable lab values of a white blood cell count ranging from 11.3-16.7, on day of discharge, it was 13.1. She had an ESR of 12 and a CRP of 3.07. The patient tolerated the procedure well, when she went into the OR to have the I\T\D of the abscess drained on 01/19/2017. She has the wound bandaged and wrapped up and will have close followup with Dr. Fernandez. Because of the abscess that was present in her wound, Dr. Reyes was consulted at that time for antibiotic management. She was put on ciprofloxacin, Flagyl, and vancomycin. Upon discharge, she will be put on ciprofloxacin and Zyvox because of some cost issues. She remained afebrile throughout her hospital stay, really had no other health problems. She does have the old diagnosis of bipolar 1 disorder, it is untreated. However , she was doing well and does not require medication at this time. Also, history of ADHD and anxiety with the same going there. She is also counseled on tobacco cessation because of tobacco abuse. Today, she notes that she does have some pain at her wound site as well as some burning sensations. She had a normal neurovascular exam and will have close followup with Dr. Fernandez in the orthopedic office. DISPOSITION: Stable. DISCHARGE INSTRUCTIONS: 1. Location: She will be discharged home into her own care. 2. Diet: Diet will be as tolerated without any restrictions. 3. Activity: Activity will be as tolerated without any restrictions, but want to make sure that she takes it easy with the right hand and keeps that out of any further damage. 4. Followup: Follow up will be with Dr. Fernandez in one day on 01/23/2017, and also Dr. Reyes in 2 weeks to manage her antibiotics. We wish her the best of luck and hope that she no longer has any problems with infection or with her dog. [facility]ITALNelida
== END 2017-01-21 16:57 | disposition home or self-care (01) | DRG 506 ==
LOC: ERS 14:28 → OBSVTOIN 16:52 → 3SE 16:52 → T4-A 01-19 18:15
PROVIDERS: ADMIT Family Medicine; ATTEND Family Medicine
PROC: 0R9U0ZZ Drainage of Right Metacarpophalangeal Joint, Open Approach (ICD-10-PCS; principal; 2017-01-19)
PROC: 0J9J0ZZ Drainage of Right Hand Subcutaneous Tissue and Fascia, Open Approach (ICD-10-PCS; 2017-01-19)
PROC: 0LB70ZZ Excision of Right Hand Tendon, Open Approach (ICD-10-PCS; 2017-01-19)
PROC: 0LB70ZZ Excision of Right Hand Tendon, Open Approach (ICD-10-PCS; 2017-01-19)
DX: M00.841 Arthritis due to other bacteria, right hand (principal); L03.113 Cellulitis of right upper limb; M65.841 Other synovitis and tenosynovitis, right hand; S61.451A Open bite of right hand, initial encounter; W54.0XXA Bitten by dog, initial encounter; F31.9 Bipolar disorder, unspecified; F90.9 Attention-deficit hyperactivity disorder, unspecified type; F41.9 Anxiety disorder, unspecified; F17.210 Nicotine dependence, cigarettes, uncomplicated
CPT/HCPCS: 36415; 36416; 80048; 80053; 82550; 85025; 85652; 86140; 87040; 87070; 87205; 87324; 87449; 96365; 96375; A4216; J0744; J1100; J1200; J1885; J2001; J2175; J2270; J2405; J2550; J2704; J2765; J3010; J3370; J3490; J7050; Q0162; S0020; S0028

== ENCOUNTER 2017-01-28 12:18 | Day surgery (SDC) | payer OTHER, SELFPAY ==
[2017-01-25 15:14] VITALS: BMI 39.7
[2017-01-28] MEDS ORDERED: Lidocaine 1% (PF) 30 ML VIAL ONE (14:07)
[2017-01-28] MEDS ORDERED: Bupivacaine PF 0.5% 30 ML VIAL ONE (14:07)
[2017-01-28] MEDS ORDERED: Bacitracin Zinc Ointment 30 gm TUBE ONE (14:08)
[2017-01-28] MEDS ORDERED: Thrombin 5000 UNITS/5 ML VIAL ONE (14:08)
[2017-01-28] MEDS ORDERED: Sodium Chloride 0.9% 10 ML ONE (14:08)
[2017-01-28] MEDS ORDERED: Lidocaine 2% PF 10 ML AMP (For Epidural Use) ONE (15:31)
[2017-01-28] MEDS ORDERED: Ondansetron HCl/PF 4 MG/2 ML Vial ONE (15:31)
[2017-01-28] MEDS ORDERED: Propofol 200 MG/20 ML VIAL ONE (15:31)
[2017-01-28] MEDS ORDERED: Fentanyl 100 MCG/2 ML VIAL ONE ×4 (15:44→17:26)
[2017-01-28] MEDS ORDERED: Ketorolac Tromethamine 30 MG/ML VIAL ONE (16:52)
[2017-01-28] MEDS ORDERED: Morphine Sulfate 2 MG/ML SYRINGE ONE (16:57)
--- NOTE | 2017-01-29 10:29 | OP ---
DATE OF PROCEDURE: 01/28/2017 PREOPERATIVE DIAGNOSIS: Left index finger open wound, 5 cm, with exposed tendon. POSTOPERATIVE DIAGNOSIS: Left index finger open wound, 5 cm, with exposed tendon. PROCEDURE PERFORMED: 1. Debridement of joint. 2. Debridement of wound. 3. Repair of extensor mechanism/distal tendon zone 5, left index finger. 4. Closure of wound, repair, multiple layers complex. INDICATION: The patient with staged wound management after having a bite wound in 2 different sites that was by about 3 cm, so she had just an extensile incision at that time, had joint inv olvement with gross purulence. She is presently on dual antibiotics by Infectious Disease, who is n ow 8 days. Wounds was stable and clean without gross infection so closure was indicated. SURGEON: Yunior Fernandez M.D. ANESTHESIA: [place] Anesthesia, general, augmented with about 20 mL 0.5% Marcaine block. No epine phrine, 0.5% Marcaine. DESCRIPTION OF PROCEDURE: After successful general LMA technique, the limb was prepped and draped. Time out done appropriately. We then dissected circumferentially with 6 degrees, freed the skin fr om early scar, removed early fibrous tissue around the extensor mechanism and underneath the incisio n and then removed 1 mm circumference of skin for closure. It was here that we found the extensor m echanism had a tear in it, allowing for a retinaculum in the proximal 7-8 mm secondary to the bite and the surgeon to expose the joint. We then the joint, inspected joint, irriga mark with 3 liters normal saline and Pulsavac pressure. We debrided the joint using a [place], a lakshmi jacobseny scissor for some denuded fat, curet over the joint capsule in the peritendinous region and it wa s an excisional technique. Wound down to and including the joint level. After this, we finished th e wound debridement using a [place] blade, 11 blade knife, tenotomy scissors that were 12 cm long wit h 30 degree of curve and this was an excisional technique at the level of the skin, subcutaneous tis debbi, and fat, but not down to the joint or bone. This was 2 separate debridements. The patient had a 4-0 Prolene in a [id number] pattern used to close and repair the extensor mec hanism, centralize the tendon and closing the area that was opened by the tooth. We then deflated t he tourniquet, obtained hemostasis. We then closed the wound in 2 layers with interrupted 4-0 Monoc ryl in 6 places to reapproximate the skin and then after this, the epidermal closure was accomplishe d with interrupted 4-0 nylon mattress pattern. Bulky dressing was applied with a splint with the di git in neutral extension, MP joint to protect the extensor repair.
== END 2017-01-28 19:15 | disposition home or self-care (01) ==
LOC: SDC 12:18
PROVIDERS: ATTEND Orthopaedic Surgery Hand Surgery
PROC: 0LQ80ZZ Repair Left Hand Tendon, Open Approach (ICD-10-PCS; principal; 2017-01-28)
PROC: 0RBX0ZZ Excision of Left Finger Phalangeal Joint, Open Approach (ICD-10-PCS; principal; 2017-01-28)
DX: S61.251A Open bite of left index finger without damage to nail, initial encounter (principal); S66.301A Unspecified injury of extensor muscle, fascia and tendon of left index finger at wrist and hand level, initial encounter; F90.1 Attention-deficit hyperactivity disorder, predominantly hyperactive type; F41.9 Anxiety disorder, unspecified; F17.210 Nicotine dependence, cigarettes, uncomplicated; F31.9 Bipolar disorder, unspecified; Z79.2 Long term (current) use of antibiotics; Z79.899 Other long term (current) drug therapy; Z88.0 Allergy status to penicillin; Z88.2 Allergy status to sulfonamides; Z91.013 Allergy to seafood; Z88.1 Allergy status to other antibiotic agents
CPT/HCPCS: 96372; 96374; A4216; J1170; J1885; J2001; J2270; J2405; J2704; J3010; J3370; J3490; S0020

== ENCOUNTER 2017-02-03 18:52 | Emergency (ER) | payer OTHER, SELFPAY ==
[2017-02-03 19:29] LABS: #Basophils 0.2 thou/uL (0.0-0.2); #Eosinphils 0.2 thou/uL (0.0-0.7); #Lymphocytes 5.7 thou/uL (1.20-3.40); #Monocytes 0.5 thou/uL (0.11-0.59); #Neutrophils 7.1 thou/uL (1.40-6.50); %Basophils 1.4 % (0.0-1.0); %Eosinophils 1.8 % (0.0-10.0); %Lymphocytes 41.5 % (21.0-51.0); %Monocytes 3.9 % (0.0-10.0); Hematocrit 43.5 % (36.0-47.0); Mean Platelet Volume 6.4 fL (7.4-10.4); Red Blood Cell (RBC) Count 4.93 mill/uL (4.20-5.40); White Blood Cell (WBC) Count 13.8 thou/uL (4.8-10.8)
[2017-02-03 19:36] LABS: PTT 31.3 SEC (22.9-36.1); Prothrombin Time 13.9 SEC (12.0-14.7)
[2017-02-03 19:54] LABS: Troponin I Less than 0.010 ng/mL (< 0.028)
[2017-02-03 20:18] LABS: Bilirubin Negative (Negative); Blood, Urine Negative (Negative); Glucose, Urine (Dipstick) Negative (Negative); Ketone, Urine Negative (Negative); Nitrite Negative (Negative); Protein, Urine (Dipstick) Negative (Neg-Trace); Urobilinogen 0.2 mg/dL (0.2-1.0)
[2017-02-03 20:20] LABS: Bacteria/HPF None Seen HPF (None Seen); Hyaline Casts/LPF 0-3 HYALINE CAST LPF (0-3 Hyaline); RBC/HPF 0-3 HPF (0-3); Squamous Epithelial 0-3 HPF (0-3); WBC/HPF 0-3 HPF (0-3)
[2017-02-03 20:29] LABS: Acetaminophen Less than 6.0 mcg/mL (10.0-30.0); Salicylate Less than 8.0 mg/dL (15.0-30.0)
[2017-02-03 21:08] LABS: Amphetamine Detected (NotDetected); Methadone Not Detected (NotDetected); Methamphetamine Not Detected (NotDetected)
--- NOTE | 2017-02-03 21:24 | RAD ---
PORTABLE CHEST ONE VIEW: Date: 02-03-17 Time: 7:35 p.m. History: Dyspnea. Chest pain. Recent hand surgery. Comparison: 12-03-16 FINDINGS: The heart size is normal. The lungs are clear. The bony thorax is normal. IMPRESSION: Normal exam. POS: MEÑO
== END 2017-02-03 22:23 | disposition home or self-care (01) ==
LOC: ERS 18:52
DX: R53.1 Weakness (principal); T45.0X5A Adverse effect of antiallergic and antiemetic drugs, initial encounter; T36.95XA Adverse effect of unspecified systemic antibiotic, initial encounter; I10 Essential (primary) hypertension; F31.9 Bipolar disorder, unspecified; F90.9 Attention-deficit hyperactivity disorder, unspecified type; F41.9 Anxiety disorder, unspecified; F17.290 Nicotine dependence, other tobacco product, uncomplicated
CPT/HCPCS: 36415; 71010; 80306; 80307; 81003; 81015; 82553; 84484; 85025; 85379; 85610; 85730; 93005

== ENCOUNTER 2017-07-04 15:27 | Emergency (ER) | payer OTHER, SELFPAY ==
[2017-07-04] MEDS ORDERED: Famotidine 20 MG TAB ONE (15:45)
[2017-07-04] MEDS ORDERED: predniSONE 20 MG TAB ONE (15:45)
[2017-07-04] MEDS ORDERED: diphenhydrAMINE 25 MG CAP ONE (15:45)
[2017-07-04] MEDS ORDERED: Ibuprofen 200 MG TAB ONE (16:05)
== END 2017-07-04 17:11 | disposition home or self-care (01) ==
LOC: ERS 15:27
DX: T63.461A Toxic effect of venom of wasps, accidental (unintentional), initial encounter (principal); I10 Essential (primary) hypertension; F41.9 Anxiety disorder, unspecified; F31.9 Bipolar disorder, unspecified; F90.9 Attention-deficit hyperactivity disorder, unspecified type; F17.210 Nicotine dependence, cigarettes, uncomplicated
CPT/HCPCS: 99282; J7506

== ENCOUNTER 2017-07-29 17:38 | Emergency (ER) | payer SELFPAY | END 2017-07-29 18:51 | disposition left against medical advice (07) | LOC: ERS 17:38 | DX: Z53.21 Procedure and treatment not carried out due to patient leaving prior to being seen by health care provider (principal) | CPT/HCPCS: 93005 ==